=== PATIENT | female | born 1985 | race Caucasian/White ===

== ENCOUNTER 2017-07-22 05:45 | Day surgery (SDC) | payer MEDICAID ==
[2017-07-20 09:35] LABS: HEMATOCRIT 44.4 % (34.6-47.8); HEMOGLOBIN 15.1 g/dL (11.7-16.4); WHITE BLOOD COUNT 7.3 x10^3/uL (3.4-10)
[2017-07-20 09:39] LABS: BLOOD UREA NITROGEN 11 mg/dL (7-18)
[~2017-07-22] VITALS: Ht 160 cm; Wt 70.6 kg
[~2017-07-22 05:45] MED LIST: ALPR-475 PO; SCOP1PAT TD; [UNRECOGNIZED DRUG - REMARK]
[2017-07-22] MEDS ORDERED: LACTATED RINGERS 1,000 ML IV SCH (06:28)
[2017-07-22 06:29] VITALS: BP 115/78
[2017-07-22] MEDS ORDERED: LIDOCAINE/PF 1%, 30ML ONE (07:03)
[2017-07-22] MEDS ORDERED: SCOPOLAMINE PATCH, 1.5MG PATCH.TD72 TD ONE (07:15)
[2017-07-22] MEDS ORDERED: HYDROmorphone 1 MG/ML, 1ML ONE ×2 (07:23→08:43)
[2017-07-22] MEDS ORDERED: FENTANYL PF 100 MCG/2ML ONE (07:24)
[2017-07-22] MEDS ORDERED: METOCLOPRAMIDE 5 MG/ML, 2ML ONE (07:27)
[2017-07-22] MEDS ORDERED: ONDANSETRON 2MG/ML, 2ML ONE ×2 (07:27→09:30)
[2017-07-22] MEDS ORDERED: DEXAMETHASONE 4 MG/ML, 1ML ONE (07:27)
[2017-07-22] MEDS ORDERED: PROPOFOL 10 MG/ML, 20ML ONE (07:27)
[2017-07-22] MEDS ORDERED: SUCCINYLCHOLINE 20 MG/ML, 10ML ONE (07:27)
[2017-07-22] MEDS ORDERED: KETOROLAC 30 MG/1 ML ONE (07:27)
[2017-07-22] MEDS ORDERED: ROCURONIUM 10 MG/ML ONE (07:27)
[2017-07-22] MEDS ORDERED: MEPERIDINE/PF 25MG/0.5ML IVPush PRN (08:00)
[2017-07-22] MEDS ORDERED: MIDAZOLAM 1 MG/ML, 2ML IV PRN (08:00)
[2017-07-22] MEDS ORDERED: PROMETHAZINE 25 MG/ML, 1ML IV PRN (08:00)
[2017-07-22] MEDS ORDERED: OXYcodone 5 MG/5 ML ORAL.SOL UDC PO PRN (08:00)
[2017-07-22] MEDS ORDERED: ONDANSETRON 2MG/ML, 2ML IVPush PRN (08:00)
[2017-07-22] MEDS ORDERED: HYDROmorphone 1 MG/ML, 1ML IV PRN (08:00)
[2017-07-22] MEDS ORDERED: FENTANYL PF 100 MCG/2ML IV PRN (08:00)
[2017-07-22] MEDS ORDERED: LABETALOL 5MG/ML, 20ML IV PRN (08:00)
[2017-07-22] MEDS ORDERED: hydrALAzine 20 MG/ML, 1ML IV PRN (08:00)
[2017-07-22] MEDS ORDERED: MEPERIDINE/PF 25MG/0.5ML ONE (08:43)
[2017-07-22] MEDS ORDERED: OXYcodone 5 MG/5 ML ORAL.SOL UDC ONE (08:44)
== END 2017-07-22 10:38 ==
LOC: OUT 05:45
PROVIDERS: ATTEND Obstetrics & Gynecology Gynecology
DX: N73.6 Female pelvic peritoneal adhesions (postinfective) (principal); Z91.040 Latex allergy status; Z90.710 Acquired absence of both cervix and uterus
CPT/HCPCS: 36415; 49329; 80048; 81003; 85025; 88302; J0330; J1100; J1170; J1885; J2175; J2405; J2704; J2765; J3010; J3490; J7120